=== PATIENT | female | born 1985 | race Caucasian/White ===

== ENCOUNTER → 2020-04-24 09:52 | Outpatient (CLI) | payer BC, SELFPAY | LOC: MTDU 09:52 | PROVIDERS: PCP Family Medicine | DX: Z20.828 Contact with and (suspected) exposure to other viral communicable diseases (principal) | CPT/HCPCS: 87635; 94799; U0003 ==

== ENCOUNTER → 2020-05-17 17:46 | Outpatient (CLI) | payer BC, SELFPAY | PROVIDERS: PCP Family Medicine; Visit Provider Obstetrics & Gynecology | DX: Z11.59 Encounter for screening for other viral diseases (principal) | CPT/HCPCS: 87635; C9803; U0003 ==

== ENCOUNTER 2020-05-23 06:50 | Inpatient (IN) | payer BC, SELFPAY ==
[2016-09-24 20:39] VITALS: BMI 25.6
[2020-05-23] VITALS (18 sets, daily range): BP systolic 100–137; BP diastolic 64–97; PULSE 69–94; RESP 15–16; TEMP 35.8–36.9; O2SAT 98; BMI 28.5
[2020-05-23] MEDS: Oxytocin 30 units/NS 500 ml 30 UNITS/500 ML IV.SOLN IV (08:13)
[2020-05-23] MEDS: Lactated Ringers 1,000 ML 50 ML IV (08:13)
[2020-05-23 08:15] LABS: Absolute Lymphocyte Count 1.67 X10^3/uL (0.83-4.51); Absolute Neutrophil Count 10.7 X10^3/uL (2.0-7.7); Basophil# 0.03 X10^3/uL; Basophil% 0.2 % (0-1); Eosinophil# 0.19 X10^3/uL; Eosinophils% 1.4 % (0-5); Hematocrit 34.2 % (37-47); Hemoglobin 11.7 g/dL (12.0-15.0); Lymphocyte # 1.67 X10^3/ul (4.0); Lymphocyte % 12.3 % (19-41); Mean Corp Hgb Conc 34.2 g/dL (32-36); Mean Corpuscular Hgb 31.2 pg (27.0-32.0); Mean Corpuscular Volume 91.2 fL (81-99); Monocyte# 0.86 X10^3/uL; Monocyte% 6.3 % (0-10); NRBC Flagged by Analyzer 0 % (0-5); Neutrophil # 10.67 X10^3/uL (2.7-7.7); Neutrophil % 78.6 % (47-70); Platelet Count 150 K/mm3 (150-450); RBC Distribution Width SD 42.5 fl (35.1-43.9); Red Blood Count 3.75 M/mm3 (4.2-5.4); White Blood Count 13.6 K/mm3 (4.4-11.0)
--- NOTE | 2020-05-23 08:26 | HP.PCM_ITS ---
History Date of Admission: 04/16/14 Final CEE: 05/28/20 Final CEE Source: US <20 weeks Gestational age: 39 Weeks and 2 Days History of this : This is a 35 year-old, 3 para 2 at 39-2/7 weeks gestation presents for induction of labor due to advanced maternal age. She had some irregular contractions over the weekend. No vaginal bleeding or leaking. Her has been uncomplicated to date except for fetus maternal age. She denies any vulvar lesions or burning. Surgical history is significant for 2 full-term vaginal deliveries. Past medical history significant for patient being Rh- blood type. Normal Pap smear. He has a history of anemia. She has a history of herpes. She has been on acyclovir prophylaxis. Allergies adhesive Allergy (Verified 04/16/14 06:27) Rash Home Medications: Home Medications Acyclovir 400 mg PO TID 05/23/20 Vits [Prenatabs FA] 1 tab PO DAILY 05/23/20 Smoking Status: Heavy Smoker (>10/day) Alcohol: None Number of Fetus(es): 1 History Past Pregnancies: Past Pregnancies Delivery Date Name GA/ Weeks Outcome Route Wt Infant Sex Labor Length Anesthesia Delivery Location Provider FOB Expected Delivery Method: Spontaneous Vaginal Review of Systems Constitutional: Denies: Anorexia, Fever Eyes: Denies: Blurred vision Cardiovascular: Denies: Chest Pain Respiratory: Denies: Cough, Shortness of Breath Genitourinary: Denies: Dysuria Neurological: Denies: Blurred vision, Change in Speech, Slurred speech Hematologic/ Lymphatic: Reports: Anemia. 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 Estimated weight is less than 4500 g clinically, pelvis clinically adequate to expect vaginal delivery. Patient has been on HSV prophylaxis, no signs or symptoms of HSV outbreak currently. Okay to proceed with vaginal delivery. Have epidural or IV pain control as needed. Pitocin and artificial rupture membranes for induction of labor.
[2020-05-23] MEDS: Lactated Ringers 500 ML 999 ML IV (11:04)
[2020-05-23] MEDS: Oxytocin 30 units/NS 500 ml 30 UNITS/500 ML IV.SOLN 334 UNITS IV (12:05)
--- NOTE | 2020-05-23 12:23 | PCM.OPRPT ---
Vaginal Delivery Maternal Presentation: Medically Indicated Induction Method of Induction: Pitocin, Amniotomy Medical Reason for Induction: - - advanced maternal age Amniotic Membrane Rupture Type: Artificial Amniotic Fluid Description: Clear Final CEE: 05/28/20 Final CEE Source: US <20 weeks Gestational age: 39 Weeks and 2 Days Date of Procedure: 05/23/20 Pre-Operative Diagnosis: labor Post-Operative Diagnosis: same Surgery/ Procedure Performed: Spontaneous Vaginal Delivery Type of Anesthesia: Epidural Description of Procedure: A vigorous male infant was delivered ANTONIO over a small first-degree perineal laceration. The remainder the infant was delivered with maternal pushing and gentle traction only in less than 15 seconds. The Pitocin infusion was initiated for active management of the third stage. The cord was clamped and cut after 1 minute. The was attended to by the waiting nursing staff. The placenta was delivered spontaneously and intact. The cervix and vagina were intact. 5 cc of 1% Xylocaine were used locally to anesthetize the area. The first-degree perineal laceration was repaired with 3-0 Vicryl suture in a running standard fashion. Sponge and needle counts were correct. A vaginal sweep was completed by me. Presentation: ANTONIO Placental Delivery Description: Spontaneous Placenta Disposition: [facility] Cord Vessel Description: 3 Vessels Cord Entanglement: None Drain: - - none Estimated Blood Loss: 200 A gender: Male - Cristobal (1 minute): 8 (5 minute): 9 Episiotomy Description: None Laceration: 1st degree - perineal Medications given after delivery: IV Pitocin Complications: None
[2020-05-23] MEDS: Acetaminophen 500 MG Tablet 1000 MG PO (14:43)
--- NOTE | 2020-05-23 14:44 | NURSING ---
pt up oob gait steady
[2020-05-24 00:35] VITALS: BP 103/64; PULSE 65; RESP 16; TEMP 37.1
[2020-05-24 03:10] VITALS: BP 98/71; PULSE 64; RESP 16; TEMP 36.9
[2020-05-24] MEDS: Acetaminophen 500 MG Tablet 1000 MG PO (04:39)
[2020-05-24 08:30] VITALS: BP 105/69; PULSE 63; RESP 14; TEMP 36.6
--- NOTE | 2020-05-24 08:52 | PCM.PN.OB ---
Subjective: Doing well per patient and nursing staff. Ambulating and taking PO without difficulty. Voiding and passing flatus. . Pain controlled. Lochia normal. Offers no complaints. - Physical Exam Vitals/I&O's: Vital Signs Temp Pulse Resp BP Pulse Ox 98 F 63 14 105/69 98 05/24/20 08:30 05/24/20 08:30 05/24/20 08:30 05/24/20 08:30 05/23/20 10:33 Oxygen Delivery Method Room Air Weight: 156 lb Body Mass Index (BMI) 28.5 Intake and Output for Last 24 Hours 05/22/20 05/23/20 05/24/20 23:59 23:59 23:59 Intake Total 1258.27 / 1258.27 Output Total 1000 / 1000 Balance 258.27 / 258.27 General: Alert, Oriented x3, Cooperative HEENT: Atraumatic, Normocephalic Neck: Trachea Midline Lungs: Clear to auscultation, Normal air movement, No rhonchi, No wheeze Cardiovascular: Regular rate, Regular Rhythm, No murmurs Abdomen: Bowel Sounds Present, Soft - Fundus firm 2 below U Extremities: No edema Neurological: Deep Tendon Reflexes 2+/4 and Symmetrical Psych/Mental Status: Normal Affect, Appropriate Laboratory Results 05/23/20 07:50: Blood Type O NEGATIVE, Antibody Screen NEGATIVE 05/23/20 15:30: Screen NEGATIVE, Baby's Blood Type O POSITIVE, Baby's DAVID NEGATIVE Current Medications Acetaminophen (Tylenol) 1,000 mg PO Q8H PRN PRN PRN Reason: Pain Score 1-3/10 Last Admin: 05/24/20 04:39 Dose: 1,000 mg Documented by: Bisacodyl (Dulcolax) 10 mg RECTAL UD PRN PRN Reason: If no BM Dibucaine (Dibucaine) 1 applic TOPICAL TID PRN PRN; Protocol PRN Reason: Discomfort Hydrocortisone (Hytone) 1 applic TOPICAL TID PRN PRN; Protocol PRN Reason: Discomfort Methylergonovine Maleate (Methergine) 0.2 mg IM X1 PRN PRN Reason: Excess bleeding/uterine atony Naproxen (Naprosyn) 500 mg PO Q8H PRN PRN PRN Reason: Pain Score 1-3/10 Ondansetron HCl (Zofran) 4 mg IV Q4H PRN PRN PRN Reason: Nausea Prochlorperazine Edisylate (Compazine Iv) 10 mg IV Q6H PRN PRN PRN Reason: NAUSEA/VOMITING Senna/Docusate Sodium (Senokot-S, Chen-Colace) 1 - 2 tablet PO DAILY PRN PRN PRN Reason: Constipation Simethicone (Mylicon) 80 mg PO PCHS PRN PRN Reason: Indigestion/Stomach pain Sodium Chloride () 5 - 15 ml IV UD PRN PRN Reason: SALINE FLUSH Medical Necessity - Tobacco Use Smoking Status: Heavy Smoker (>10/day) Assessment/Plan A: PPD #1 P: 1) Routine and instructions. 2) Follow up in 2 weeks and 6 weeks 3) Discharge home.
--- NOTE | 2020-05-24 08:55 | DCINST_ITS ---
Discharge Diet: No Restrictions Discharge Activity: Return to Normal Activity, May not drive while taking narcotic pain medications., May Shower May resume sexual activity in: 4-6 weeks Weight Bearing Status: Full weight bearing Additional Activity Instructions:: Nothing in the vagina for 4-6 weeks. You may return to work/school in 6 weeks. Call your doctor if your incision/area has: Continuous Slow Oozing, Sudden Increased Bleeding, Increased Pain/ Swelling, Increased Redness, Foul Smelling Discharge Additional Instructions: If you experience any of the following, contact your healthcare provider. * Bleeding that soaks a pad every hour for 2 hours * Fever 100.4 or higher * Unrelieved incision or abdominal pain * Swelling, redness, discharge or bleeding from your incision or epis iotomy site * Your incision begins to separate * Problems urinating (including inability to urinate or burning while urinating). * Visual changes * Severe headache * Flu-like symptoms * Pain or redness in one of both of your breasts * Pain, warmth, tenderness or swelling in your legs, especially the calf area * Frequent nausea and vomiting * Symptoms of depression or anxiety If you experience any of the following, call 911 or go to the nearest Emergency Room. * Chest pain * Problems breathing * Seizure activity * Partial or complete paralysis of a body part, slurred speech, weakness or drooping of the face, or a sudden inability to walk or hold your balance Allergies/Adverse Reactions: Allergies adhesive Allergy (Verified 04/16/14 06:27) Rash Medications to take at Discharge Acyclovir 400 mg PO TID 05/23/20 Vits [Prenatabs FA ] 1 tab PO DAILY 05/23/20 Please Follow Up With: Ambreen Mota MD When: Call to make an appointment with your doctor in 6 weeks. If you had elevated Blood Pressure or 4th degree laceration you will need to be seen in 2 weeks. Primary Care Physician: Amado Almeida DO [Primary Care Provider] - Test Results: Test results from this visit will be discussed in further detail at your follow- up appointment, if applicable. Proposed Discharge Date: 05/24/20
[2020-05-24 12:45] VITALS: BP 106/70; PULSE 67; RESP 14; TEMP 36.6
== END 2020-05-24 15:30 | disposition home or self-care (01) | DRG 807 ==
PROVIDERS: Obstetrics & Gynecology; Admitting Provider Obstetrics & Gynecology; PCP Family Medicine; Referring Provider Obstetrics & Gynecology; Visit Provider Obstetrics & Gynecology
DX: O70.0 First degree perineal laceration during delivery (principal); Z37.0 Single live birth; O99.334 Smoking (tobacco) complicating childbirth; F17.200 Nicotine dependence, unspecified, uncomplicated; Z3A.39 39 weeks gestation of pregnancy; Z86.19 Personal history of other infectious and parasitic diseases
CPT/HCPCS: 59025; 59050; 85025; 85461; 86850; 86900; 86901; 90384; 99218; J7120; G0378; J2790

== ENCOUNTER 2022-02-07 06:55 | Inpatient (IN) | payer BC, SELFPAY ==
[2022-02-07] VITALS (22 sets, daily range): BP systolic 109–139; BP diastolic 55–83; PULSE 66–86; RESP 16; TEMP 36.2–36.8; O2SAT 91–100; BMI 27.7
--- NOTE | 2022-02-07 07:23 | PCM.HP.OB ---
HPI - General General Date of Admission: 02/07/22 HPI Narrative BASSEM JONES, is a 36 F who presents for scheduled IOL for AMA. Doing well and has no complaints. Maternal Data Information CEE Calculator Estimated Delivery Date Method Current WG Current Estimate 02/10/22 LMP (Certain) 39w 4d PFSH PFSH Home Medications acyclovir 400 mg PO TID 05/23/20 [History Last Taken 05/22/20 12:00] vit,[id number] 1 tab PO DAILY 05/23/20 [History Last Taken 05/21/20 10:00] Allergy/AdvReac Type Severity Reaction Status Date / Time adhesive Allergy Rash Verified 04/16/14 06:27 Social History Smoking Status: Current every day smoker History Elective abortions Hx Para 3 Spontaneous abortions Hx # Term Pregnancies Ectopic pregnancies Hx # Pregnancies Multiple births # of living children NST FHR Rate Baby A Baseline: 140 Variability:: Moderate Accelerations:: 15 x 15 Decelerations:: None NST Reactive:: Yes FHR Category:: Category I Uterine Activity:: No regular ctx's Physical Exam Const alert and no apparent distress HEENT normocephalic Resp normal respiratory effort GI soft to palpation and non-tender Extremity normal to inspection Labs Labs Labs: Blood Type O NEGATIVE Antibody Screen NEGATIVE Hct 35.8 % (37-47) L Hgb 12.3 g/dL (12.0-15.0) Rhogam given: Yes Assessment & Plan (1) 39 weeks gestation of : PLAN: Admit for induction of labor for advanced maternal age. Discussed risk, benefits, alternatives of a scheduled elective induction of labor, and patient desires to proceed. Epidural as needed for pain. Labs on admission. GBS negative. Routine intrapartum care. Estimated weight expected to be less than 4500 g and pelvis adequate. Cvx 3/60/-2, AROM performed in usual fashion wiht return of clear fluid. Start pitocin. Anticipate a vaginal delivery. (2) Multiparous: (3) History of depression: (4) Tobacco use during : (5) Rh negative status during : (6) Herpes genitalis: (7) Advanced maternal age (AMA) in :
[2022-02-07] MEDS: Lactated Ringers 1,000 ML 50 ML IV (07:25)
[2022-02-07 08:02] LABS: Absolute Lymphocyte Count 1.85 X10^3/uL (0.83-4.51); Absolute Neutrophil Count 11.1 X10^3/uL (2.0-7.7); Basophil# 0.05 X10^3/uL; Basophil% 0.3 % (0-1); Eosinophil# 0.26 X10^3/uL; Eosinophils% 1.8 % (0-5); Hematocrit 35.8 % (37-47); Hemoglobin 12.3 g/dL (12.0-15.0); Lymphocyte # 1.85 X10^3/ul (0.83-4.51); Lymphocyte % 12.9 % (19-41); Mean Corp Hgb Conc 34.4 g/dL (32-36); Mean Corpuscular Hgb 31.6 pg (27.0-32.0); Mean Platelet Vol. 11.8 fl (6.2-12.0); Monocyte# 0.91 X10^3/uL; Monocyte% 6.4 % (0-10); NRBC Flagged by Analyzer 0 % (0-5); Neutrophil # 11.09 X10^3/uL (2.7-7.7); Neutrophil % 77.4 % (47-70); Platelet Count 179 K/mm3 (150-450); RBC Distribution Width CV 12.8 % (11.6-14.6); RBC Distribution Width SD 42.9 fl (35.1-43.9); Red Blood Count 3.89 M/mm3 (4.2-5.4); White Blood Count 14.3 K/mm3 (4.4-11.0)
[2022-02-07] MEDS: Oxytocin 30 units/NS 500 ml 30 UNITS/500 ML IV.SOLN IV (08:23)
--- NOTE | 2022-02-07 10:30 | PCM.HP.OB ---
HPI - General General Date of Admission: 02/07/22 HPI Narrative BASSEM JONES, is a 36 F at 39.4 weeks gestation who presents for induction of labor for AMA and EFW 10%. Maternal Data Information CEE Calculator Estimated Delivery Date Method Current WG Current Estimate 02/10/22 LMP (Certain) 39w 4d PFSH PFSH Home Medications acyclovir 400 mg PO TID 05/23/20 [History Last Taken 05/22/20 12:00] vit,[id number] 1 tab PO DAILY 05/23/20 [History Last Taken 05/21/20 10:00] Allergy/AdvReac Type Severity Reaction Status Date / Time adhesive Allergy Rash Verified 04/16/14 06:27 Social History Smoking Status: Current every day smoker History Elective abortions Hx Para 3 Spontaneous abortions Hx # Term Pregnancies Ectopic pregnancies Hx # Pregnancies Multiple births # of living children Vital Signs Vital Signs Vital Signs: 02/07/22 07:25 02/07/22 07:33 02/07/22 08:26 Temperature 97.6 F L Pulse Rate 83 80 Blood Pressure 111/58 L 116/69 BP Systolic 111 116 BP Diastolic 58 69 02/07/22 09:11 Temperature Pulse Rate 77 Blood Pressure 113/70 BP Systolic 113 BP Diastolic 70 Weight Weight: 151 lb 8 oz Body Mass Index (BMI) 27.7 Labs Labs Labs: Blood Type O NEGATIVE Antibody Screen NEGATIVE Hct 35.8 % (37-47) L Hgb 12.3 g/dL (12.0-15.0) Rhogam given: Yes
[2022-02-07] MEDS: Lactated Ringers 500 ML 999 ML IV (10:49)
--- NOTE | 2022-02-07 11:16 | PN_ITS ---
Progress Note At bedside to check on pt. On pit 2 mu/min and ctx q 1-2 min. Category 2 tracing with early decelerations and mod variability. Pt uncomfortable w/ ctx's. Cvx 5/-1. Anticipate vaginal delivery. 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
[2022-02-07] MEDS: Oxytocin 30 units/NS 500 ml 30 UNITS/500 ML IV.SOLN 334 UNITS IV (11:40)
[2022-02-07] MEDS: miSOPROStol 200 MCG Tablet 800 MCG RC (11:50)
--- NOTE | 2022-02-07 11:52 | OP.PCM_ITS ---
Problems Associated Problem List Diagnoses (1) Advanced maternal age (AMA) in : (2) Herpes genitalis: (3) Rh negative status during : (4) Tobacco use during : (5) History of depression: (6) Multiparous: (7) 39 weeks gestation of : (8) Vaginal delivery: Report of Operation Date of Procedure: 02/07/22 Pre-Operative Diagnosis: 39 week gestation, induction of labor for AMA, multiparous patient, single IUP Post-Operative Diagnosis: As above Surgery/Procedure Performed:: Description of Surgical Findings:: Viable female delivered in left occiput anterior position. Intact perineum. Surgeon: Tatiana Haynes Type of Anesthesia: None Special Medications: None Specimen's removed: Placenta Drains: None Estimated Blood Loss (mL): 150 Fluids Replaced: N/A Description of Procedure: Patient progressed quickly from 5 cm to complete. Once complete she began pushing and head of infant was delivered in left occiput anterior position over an intact perineum. Anterior shoulder was delivered with gentle downward traction, followed by posterior shoulder and body of infant without any force or delay. The infant was placed on maternal abdomen. The cord was clamped and cut immediately by the father of the baby. Cord blood was obtained. Placenta delivered with fundal massage, and placenta was normal- appearing and intact with a three-vessel cord. Fundus was firm. There was a constant trickle of bleeding noted. Pitocin was started prior to delivery of placenta. Cytotec 800 mcg was placed rectally. No lacerations noted. Vaginal sweep was performed. Sharp and sponge count were correct. Grafts/Implants Used: None Complications None Admit VTE Documentation VTE Present on Admission: No
[2022-02-07] MEDS: Acetaminophen 500 MG Tablet 1000 MG PO (13:50)
[2022-02-07] MEDS: Ibuprofen 600 MG Tablet PO (17:10)
[2022-02-08] VITALS (7 sets, daily range): BP systolic 109–132; BP diastolic 67–76; PULSE 68–73; RESP 16–18; TEMP 36.4–36.8; O2SAT 96–98
[2022-02-08] MEDS: Acetaminophen 500 MG Tablet 1000 MG PO (01:31)
--- NOTE | 2022-02-08 07:05 | PN.OBGYN_ITS ---
Subjective Subjective Patient seen at bedside. Feeling good. Ambulating and voiding without difficulty. with minimal support. Lochia decreasing. Desires discharge home today. Objective Data Objective Data Vital Signs: Vital Signs Temp Pulse Resp BP Pulse Ox 97.6 F L 70 18 132/76 H 96 02/08/22 05:05 02/08/22 05:32 02/08/22 05:05 02/08/22 05:32 02/08/22 05:31 Oxygen Delivery Method Room Air Weight: 151 lb 8 oz Body Mass Index (BMI) 27.7 Intake & Output: Intake and Output for Last 24 Hours 02/06/22 02/07/22 02/08/22 23:59 23:59 23:59 Intake Total 1834.50 / 1834.50 Balance 1834.50 / 1834.50 Lab / Micro Data Result Diagrams: 02/07/22 07:25 Labs: Laboratory Results - last 24 hr 02/07/22 07:25: WBC 14.3 H, RBC 3.89 L, Hgb 12.3, Hct 35.8 L, MCV 92.0, MCH 31.6, MCHC 34.4, RDW Std Deviation 42.9, RDW Coeff of Rosa 12.8, Plt Count 179, MPV 11.8, Immature Gran % (Auto) 1.200 H, Neut % (Auto) 77.4 H, Lymph % (Auto) 12.9 L, [place] % (Auto) 6.4, Eos % (Auto) 1.8, Baso % (Auto) 0.3, Absolute Neuts (auto) 11.1 H, Absolute Lymphs (auto) 1.85, Nucleated RBC % 0 02/07/22 07:25: Blood Type O NEGATIVE, Antibody Screen NEGATIVE 02/07/22 18:00: Screen NEGATIVE, Baby's Blood Type O POSITIVE, Baby's DAVID NEGATIVE Micro: Microbiology 02/07/22 07:40 Nasal Secretion SARS-CoV-2 Antigen (Rapid) - Final ROS Eyes Eyes: Denies blurry vision, change in vision or spots in vision ENT HEENT: Denies dizziness or headache(s) Cardiovascular Cardiovascular: Denies abdominal pain, chest pain or dyspnea Respiratory/Chest Respiratory/Chest: Denies cough, dyspnea, shortness of breath at rest or shortness of breath with exertion Gastrointestinal Gastrointestinal: Denies abdominal pain, diarrhea or vomiting Genitourinary Genitourinary: Denies change in urinary stream, difficulty urinating or dysuria Musculoskeletal Musculoskeletal: Reports none Integumentary Integumentary: Denies rash Neurologic Neurologic: Denies dizziness, headache(s), memory loss or weakness Physical Exam Const alert and no apparent distress General Appearance: cooperative and comfortable Exam Limitations: no limitations HEENT normocephalic Eyes General Eye: normal appearance of both eyes Neck full ROM General: normal visual inspection Chest Chest: symmetrical chest wall rise Resp normal respiratory effort and normal air movement Effort and Inspection: symmetric chest movement Auscultation: clear to auscultation bilaterally Cardio regular rate and regular rhythm GI normal to inspection, nondistended, normoactive bowel sounds Back/Spine normal ROM Extremity full ROM and no calf tenderness General Extremity: normal exam except as noted Skin no rashes or lesions noted Neuro CN's II-XII intact bilaterally Psych mental status grossly normal Assessment & Plan (1) Vaginal delivery: (2) Advanced maternal age (AMA) in : PLAN: PPD 1 - Intact Routine care support D/C home later with follow up in office
--- NOTE | 2022-02-08 07:07 | PCM.DC ---
Discharge Instructions Diet Discharge Diet: No restrictions Activity May resume sexual activity in: 6-8 weeks Weight Bearing Status: Weight bearing as tolerated Dressing / Incision Call your doctor if you observe: Fever of 101 or Higher, Inability to urinate, Using more than 1 pad per hour, Shortness of breath, Chest pain, Calf discomfort and Uncontrolled pain Follow Up Care When: 2 weeks virtual visit/ 6 weeks in office Test Results: Test results from this visit will be discussed in further detail at your follow-up appointment, if applicable. Discharge Plan Admission Admit Date/Time: 02/07/22 06:55 Primary Reason for Your Visit: Labor and Delivery Attending Provider: Tatiana Haynes Primary Care Provider: Amado Almeida Discharge Orders/Prescriptions Prescriptions: Continued vit,[id number] 1 TABLET tablet 1 tab PO DAILY RF: 0 Discontinued acyclovir 400 MG tablet 400 mg PO TID RF: 0 Referrals / Follow Up: Amado Almeida DO [Primary Care Provider] - Disposition Disposition (needs filled in before D/C Order can be placed): Home, Self Care
== END 2022-02-08 13:15 | disposition home or self-care (01) | DRG 807 ==
PROVIDERS: Admitting Provider Obstetrics & Gynecology; PCP Family Medicine; Referring Provider Obstetrics & Gynecology; Visit Provider Obstetrics & Gynecology
DX: O76 Abnormality in fetal heart rate and rhythm complicating labor and delivery (principal); Z37.0 Single live birth; F17.200 Nicotine dependence, unspecified, uncomplicated; O99.334 Smoking (tobacco) complicating childbirth; Z3A.39 39 weeks gestation of pregnancy; O26.893 Other specified pregnancy related conditions, third trimester; Z67.41 Type O blood, Rh negative
CPT/HCPCS: 59025; 59050; 85025; 85461; 86850; 86900; 86901; 87426; 90384; 99218; 99406; J7120; G0378; J2790

== ENCOUNTER 2022-04-25 11:37 | Day surgery (SDC) | payer BC, SELFPAY ==
--- NOTE | 2022-04-12 16:57 | HP.PCM_ITS ---
History and Physical Date of Admission: 04/25/22 HPI: The patient is a 36 year old female presenting for pre-operative visit. She is scheduled for laparoscopic bilateral salpingectomy, for sterilization on 04/25/22. Procedure discussed along with risks, benefits and complications. Other alternatives discussed for management. Consent form signed? Yes. ? ? PAST MEDICAL HISTORY PAST MEDICAL HISTORY Diagnosis Date ? Abnormal glandular Papanicolaou smear of cervix ? ? Abn. Pap smear (cervix) ? Anemia ? ? 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 Benign heart murmur ? ? Chlamydia 2009 ? DEPRESSION ? ? FRACTURE ? ? RIGHT LEG, LEFT ARM ? Herpes genitalis 04/22/2012 ? 07/09/2021t has a history of genital herpes. Discussed with pt. importance of reporting any outbreaks during should they occur.TKRN ? Herpes simplex without mention of complication ? ? History of depression 08/17/2013 ? 08/17/2013Pt has a history of depression diagnosed August 2011. She was never placed on medication to treat the depression . Discussed increased risks of depression during and and importance of reporting the development or worsening of symptoms should they occur. Pt denies ever having any suicidal thoughts or tendencies or thoughts of hurting others. She denies ever having ? History of depression 08/17/2013 ? 07/09/2021t has a history of depression diagnosed August 2011. She was never placed on medication to treat the depression . Discussed increased risks of depression during and and importance of reporting the de velopment or worsening of symptoms should they occur. Pt denies ever having any suicidal thoughts or tendencies or thoughts of hurting others. She denies ever having ? History of herpes genitalis 10/21/2019 ? 10/21/2019Pt has a history of genital herpes. Discussed with pt. importance of reporting any outbreaks during should they occur.TKRN ? Rh negative status during 08/17/2013 ? Varicosities ? ? ? PAST SURGICAL HISTORY PAST SURGICAL HISTORY Procedure Laterality Date ? COLPOSCOPY CERVIX UPPER/ADJACENT VAGINA ? 2018 ? negative results ? PAST SURGICAL HISTORY OF ? ? ? WISDOM TEETH ? TONSILLECTOMY PRIMARY/SECONDARY <AGE 12 ? ? ? Tonsillectomy ? ? ? Allergy: Denies history of personal or family history of allergy to anesthesia ? ? CURRENT MEDICATIONS Current Outpatient Medications Medication Sig Dispense Refill ? acyclovir (ZOVIRAX) 400 mg tablet Take 1 tablet by mouth three times daily. 90 tablet 0 ? COMPRESSION HOSIERY THIGH LENGTH, AG, 30-40 MMHG once daily. 1 Each 0 ? multivitamin (CLASSIC ) 28 mg iron- 800 mcg tab(s) Take 1 tablet by mouth once daily. ? ? ? No current facility-administered medications for this visit. ? ? ALLERGIES: Patient has no known allergies. ? PERSONAL HISTORY: SOCIAL HISTORY Social History ? Tobacco Use ? Smoking status: Current Every Day Smoker ? ? Packs/day: 1.00 ? ? Years: 7.00 ? ? Pack years: 7.00 ? Smokeless tobacco: Never Used Vaping Use ? Vaping Use: Former ? Start date: 10/21/2012 ? Quit date: 11/18/2012 Substance Use Topics ? Alcohol use: Not Currently ? ? Comment: Holidays ? Drug use: No ? FAMILY HISTORY: FAMILY HISTORY FAMILY HISTORY Problem Relation Age of Onset ? Diabetes Mother ? ? Hypertension Mother ? ? Lipids Mother ? ? Heart Father 43 ? [place] ? Hypertension Father ? ? Arthritis Father ? ? No Known Problems Brother ? ? No Known Problems Brother ? ? Diabetes Maternal Grandmother ? ? Ischemic Heart Disease Maternal Grandmother 60 ? [place], CABG ? Stroke Maternal Grandmother 79 ? Heart Maternal Grandmother ? ? COPD Paternal Grandmother ? ? Emphysema Paternal Grandmother ? ? Breast Cancer Paternal Grandmother ? ? Cancer Paternal Grandfather ? ? liver cancer ? No Known Problems Daughter ? ? No Known Problems Son ? ? No Known Problems Son ? ? ? REVIEW OF SYMPTOMS: GENERAL: denies fevers or chills ENDOCRINOLOGY: has not been on steroids Cardiology : denies palpitations or chest pain Respiratory: denies SOB or cough Hematology: denies history of prolonged bleeding or easy bruising or VTE Allergy: Denies history of personal or family history of allergy to anesthesia ? PHYSICAL EXAMINATION: ? VITALS: Last menstrual period 05/06/2021, currently . ? GENERAL: The patient is well nourished, well hydrated in no acute distress. , The patient is oriented to time, place, and person. NECK: Supple. No lynphadenopathy, normal thyroid, no thyromegaly. LUNGS: Clear to auscultation bilaterally. no wheezes, rhonchi or rales HEART: Regular rate and rhythm, Normal heart sounds and No murmurs or gallops ? ? IMPRESSION: preop for sterilization request ? PLAN: The risks/benefits/alternatives and personal involved for the planned laparoscopic bilateral salpingectomy were reviewed with the patient. Her questions were answered to her satisfaction and she desires to proceed. Consent was signed. I reviewed with her postop instructions and expectations. ? ? I have reviewed and updated past medical and surgical history, medications and allergies Assessment & Plan Assessment/Plan (1) Consultation for sterilization:
[2022-04-22 16:59] LABS: Hematocrit 38.5 % (37-47); Hemoglobin 13.5 g/dL (12.0-15.0); Mean Corp Hgb Conc 35.1 g/dL (32-36); Mean Corpuscular Hgb 30.8 pg (27.0-32.0); Mean Corpuscular Volume 87.7 fL (81-99); Mean Platelet Vol. 11.4 fl (6.2-12.0); Platelet Count 242 K/mm3 (150-450); RBC Distribution Width CV 11.8 % (11.6-14.6); RBC Distribution Width SD 37.6 fl (35.1-43.9); Red Blood Count 4.39 M/mm3 (4.2-5.4); White Blood Count 9.1 K/mm3 (4.4-11.0)
[2022-04-25] VITALS (10 sets, daily range): BP systolic 103–134; BP diastolic 74–93; PULSE 65–84; RESP 16–18; TEMP 36.2–36.9; O2SAT 94–100; BMI 24.2
[2022-04-25] MEDS: Celecoxib 200 MG Capsule PO (11:59)
[2022-04-25] MEDS: Acetaminophen 500 MG Tablet 1000 MG PO (11:59)
[2022-04-25 12:00] LABS: Internal QC Validated? YES +Cl - CLEAR BKGD; Pregnancy, Urine Negative Negative
[2022-04-25] MEDS: Lactated Ringers 1,000 ML 15 ML IV (12:01)
[2022-04-25] MEDS: Bupivacaine 0.25% 30 ML Vial (12:22)
--- NOTE | 2022-04-25 12:58 | OP.PCM_ITS ---
Problems Associated Problem List Diagnoses (1) Consultation for sterilization: Report of Operation Date of Procedure: 04/25/22 Pre-Operative Diagnosis: Sterilization request Post-Operative Diagnosis: Same Surgery/Procedure Performed:: Laparoscopic bilateral salpingectomy Description of Surgical Findings:: Normal cervix, vagina, uterus tubes and ovaries. Normal peritoneal cavity. Surgeon: Ambreen Mota windows server engineer: HEMA Barry Type of Anesthesia: General Anesthesiologist: Ivette Mckeon Special Medications: None Specimen's removed: Bilateral fallopian tube Drains: None Estimated Blood Loss (mL): 5 Fluids Replaced: 800 cc Description of Procedure: Tthe patient was taken to the operating room where she was prepped and draped in the dorsolithotomy position. A weighted speculum was placed in the vagina and the anterior lip of the cervix was grasped with a tenaculum. The Coni uterine manipulator was placed and the remainder of the instruments were removed from the vagina. Attention was turned to the abdomen. All port sites were infiltrated with 0.5% Marcaine before skin incisions were made. A 5 mm intraumbilical incision was made. The anterior abdominal wall was tented up with 2 towel clamps while a 5 mm blade less trocar and sleeve were directly inserted. Intraperitoneal placement was confirmed with the laparoscope. The pneumoperitoneum was created and the underlying abdominal contents were intact. The patient was placed in Trendelenburg. Right and left lower quadrant ports were placed under direct visualization lateral to the inferior epigastric vessels. The bowel was swept away and the above findings were noted. The LigaSure device was used to clamp seal and transect the antimesenteric p ortions of the right tube to the cornual insertion of the uterus. The tube was amputated from the uterus and the pedicles were all confirmed to be hemostatic. The same procedure was performed on the contralateral side. The specimens were brought out through a 5 mm port. The pedicles were again examined and found to be hemostatic. The lateral ports were removed under direct visualization and no active bleeding was noted. The pneumoperitoneum was released. The skin incisions were closed with Monocryl suture in a subcuticular fashion and skin glue. The vaginal instruments were removed and the vaginal sweep was completed by me. The entire procedure was performed by me with assistance. All sponge and needle counts were correct and the patient was taken to the recovery room in stable condition. Grafts/Implants Used: None Procedure Start Time: 12:33 Procedure Stop Time: 12:57 Complications None Admit VTE Documentation VTE Present on Admission: No VTE Mechan Device Prophylaxis: SCD's VTE Pharm Prophylaxis ordered?: No Reason prophylaxis not ordered:: Procedure Not Indicated
--- NOTE | 2022-04-25 13:01 | DCINST_ITS ---
Discharge Instructions Diet Discharge Diet: Light diet - advance as tolerated Activity Discharge Activity: May Drive (in 1-3 days or when you don't need p ain medication) Return to work on:: 04/29/22January shower in (days): 1 May resume sexual activity in: 1 week Lifting Restrictions: 15 lbs for 1 week Dressing / Incision Call your doctor if your incision/area has: Continuous Slow Oozing, Sudden Increased Bleeding, Increased Pain/ Swelling and Foul Smelling Discharge Call your doctor if you observe: Fever of 101 or Higher Cleanse incision/area with: Soap & Water (Your incisions have skin glue, they can get wet. LEave it on for 10-14 days) Additional Dressing/Incision Instructions:: You may use heat or ice packs as needed to the abdomen Follow Up Care Please Follow Up With: Ambreen Mota MD When: as scheduled or as needed Test Results: Test results from this visit will be discussed in further detail at your follow- up appointment, if applicable. Discharge Plan Admission Primary Reason for Your Visit: Tubal sterilization Attending Provider: Ambreen Mota Primary Care Provider: Care Physician,Becca Primary Discharge Orders/Prescriptions Prescriptions: No Action vit,[id number] 1 TABLET tablet 1 tab PO DAILY Referrals / Follow Up: Care Physician,Becca Primary [Primary Care Provider] - Disposition Disposition (needs filled in before D/C Order can be placed): Home, Self Care
--- NOTE | 2022-04-25 13:15 | FALS_PTH ---
PATIENT: BASSEM JONES LOC: [facility] [place] U#:[id number] AGE/SX: 36/F ROOM: RE04/25/[address]: Dr. Ambreen Mota MD : [id number] BED: DIS: 04/25/2022 SPEC #: [id number] RECD: 04/25/22 15:36 STATUS: KRISTOFER RETanisha #: [id number] CANDACE: 04/25/22 13:[address]: Ambreen Mota DEPT: SURGICAL PATHOLOGY RECD BY: Britta Jett ENTERED: 04/26/22 08:16 SP TYPE: FALL TUBES OTHR DR: No Primary Care Phys Tissues: Fallopian tube Procedures: Surgery Specimen Level II HEADER OPERATION: Laparoscopic salpingectomy PRE-OP DIAGNOSIS: Sterilization TISSUE SUBMITTED: Bilateral fallopian tubes MICROSCOPIC DIAGNOSIS Bilateral fallopian tubes, salpingectomy: Bilateral fallopian tubes, no pathologic diagnosis. A paratubal cyst. 04/29/2022 MICROSCOPIC DESCRIPTION Slides are reviewed. GROSS DESCRIPTION Received in fixative is one container labeled with the patient's name and designated bilateral fallopian tubes. The specimen consists of bilateral fallopian tubes including fimbrial ends measuring 6.5 cm in length and 0.6 cm in diameter and 7 cm in length and 0.7 cm in diameter. The fallopian tubes are not identified as right or left. Sections reveal unremarkable cut surfaces. One fallopian tube shows a paratubal cyst measuring 0.5 cm in greatest dimension. University Manager sections are submitted in two cassettes as follows: 1 - one fallopian tube, 2 - second fallopian tube and paratubal cyst. / SJ:rg 04/26/2022 TC:4 CPT: 68916 x2
== END 2022-04-25 16:02 | disposition home or self-care (01) ==
LOC: SDC 11:38 → AC 11:39
PROVIDERS: Referring Provider Obstetrics & Gynecology; Visit Provider Obstetrics & Gynecology
PROC: (CPT 58661; principal; 2022-04-25 13:00)
DX: Z30.2 Encounter for sterilization (principal); N83.8 Other noninflammatory disorders of ovary, fallopian tube and broad ligament; F17.200 Nicotine dependence, unspecified, uncomplicated
CPT/HCPCS: 58661; 00840; 36415; 81025; 85027; 88302; J7120; C1760; J2405